=== PATIENT | female | born 1985 | race African-American/Black ===

== ENCOUNTER 2022-07-12 01:09 | Day surgery (SDC) | payer OTHER, MEDICAID, SELFPAY ==
[2022-07-11 15:34] VITALS: BMI 20.7
--- NOTE | 2022-07-11 15:38 | PC.NURSE ---
Report to the Outpatient Waiting Room, entrance under the green pavilion located off [facility], at time 0830 on date 07/12/22. Planned Procedure Time: 1030. Time changes happen often and if your time is changed the preop area will call you the afternoon before. - You and your visitor will be asked to self-screen and do not enter if you have any COVID symptoms. - We encourage only one visitor and NO visitors under age 16 are allowed at this time. Your visitor will receive communication by the phone number that is given day of service. - The patient visitor is requested to social distance or may leave the building when not with patient due to restrictions. - A mask is OPTIONAL within the hospital. Patients may have clear liquids (water, carbonated beverages, clear teas, apple juice) until 3 hours prior to surgery with a maximum of 20 ounces. - No food from midnight until time of surgery - Infants may have breast milk until 4 hours before surgery, formula 6 hours prior to surgery. - Children will be allowed to drink immediately following surgery. If applicable, please bring a bottle or sippy cup to assist with drinking. Juice, water, soda, and popsicles are readily available. For infants on formula, please bring formula the day of surgery. Pacifiers are allowed. Take the following medications with a SIP of water the morning of surgery: NONE Medications to discontinue per physician: VITAMIN Date to take last dose: NO MORE UNTIL AFTER SURGERY Please no make-up, nail bengali, hairspray, perfume, deodorant, or body powder the day of surgery. No jewelry (including any body piercings) or valuables the day of surgery, leave them at home. Please take a shower or bath the night before, or the morning of, surgery with an antibacterial soap. Wear comfortable, loose fitting clothing. - Jewelry must be removed prior to entering the operating room. Rings and piercings that are not removed may be cut off. - The hospital will not accept responsibility for valuables. - Please leave all valuables, including medications, at home the day of surgery. If you are going home after surgery, a licensed route sales delivery driver must drive you home. - NO public transportation without another adult. - We recommend that an adult stay with you for 24 hours following discharge. - We also recommend that you do not drive, make important decision, drink alcoholic beverages, or take any drugs that were not prescribed by your health care provider for at least 24 hours after your discharge time. Follow any additional instructions given to you from your surgeon. If you or anyone in your household have experienced Covid symptoms in the past week, please notify your surgeon or the nurse liaison at the phone number below for possible testing. Telephone instructions given to SABA FORD and asked if any additional questions and then verbalized understanding. Patient advised to call surgeon office or pre surgery nurse liaison [phone] if any additional questions.
--- NOTE | 2022-07-12 09:06 | PM.IMHP ---
H&P: HPI History of Present Illness Date/Time: 07/12/22 09:06 Chief Complaint: early loss Narrative: 36-year-old who presents for suction D&C for management of early loss. Pt was seen for bleeding in early . Beta HCG levels did not rise appropriately. Pelvic US showed a gestational sac with no YS or pole. Pt elected for medical management. Pt took one dose of vaginal misoprostol without any bleeding. Pt then elected for surgical management Review of Systems Cardiovascular: Cardiovascular: Denies chest pain, Denies leg edema, Denies palpitations, Denies dyspnea and Denies dyspnea on exertion Respiratory: Respiratory: Denies cough, Denies dyspnea and Denies dyspnea on exertion Gastrointestinal: Gastrointestinal: Denies abdominal pain, Denies constipation, Denies diarrhea, Denies nausea and Denies vomiting Genitourinary: Genitourinary: Denies hematuria, Denies urinary frequency, Denies dysuria, Denies pelvic pain, Denies urinary incontinence and Denies vaginal discharge Neurologic: Reports system reviewed and no additional complaints, except as documented Psychiatric: Psychiatric: Reports no additional psychiatric complaints Endocrine: Endocrine: Denies palpitations PMFSH Past Medical History Medical History Encounter for screening examination for sexually transmitted disease H/O ovarian cancer (~2006) Insertion of Nexplanon (12/17/13) Nexplanon removal (~10/2016) Suppression of menstruation Family History Family History Grandparent Diabetes mellitus maternal grandmother Hypertension maternal grand mother Social History Social History Smoking status: Current every day smoker Tobacco type: cigars Additional smoking assessment comments: 1-2/DAY Alcohol intake: current Alcohol use details: OCCASIONAL WHEN NOT Substance use: never Substance use type: does not use Living arrangements: with family Additional living arrangements comments: 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 Gender identity (if verbalized by the patient): Female Sexual Orientation (if Verbalized by the Patient): Straight or Heterosexual Spiritual care concerns: No Meds Home Medications and Allergies Home Medications Medication Instructions Recorded Confirmed Type prenat.vits,malka,iga-prfp-acubm 1 tablet PO DAILY 07/11/22 07/11/22 History Allergies Allergy/AdvReac Type Severity Reaction Status Date / Time Penicillins Allergy Severe Hives Verified 07/11/22 15:33 Exam Const: General: no acute distress Eyes: EOM: EOMs intact bilaterally Neck: Neck: supple Thyroid: thyroid normal Chest: Breast/axilla inspection: normal inspection of the breasts Breast/axilla palpation: normal palpation of the breasts, normal palpation of the axillae and no axillary lymphadenopathy Resp: Effort & Inspection: normal respiratory effort Auscultation: clear to auscultation bilaterally Cardio: Rate: regular rate Rhythm: regular rhythm GI: Inspection: non-distended GI Palp: Yes Soft to palpation, No Tenderness to palpation present (GI) and No Guarding due to palpation present (GI) Auscultation: normal bowel sounds : General: No bladder normal to palpation External Female Exam: normal external appearance Speculum Exam - Vagina: normal vaginal discharge and No vaginal bleeding Speculum Exam - Cervix: nontender Bimanual exam- vagina & uterus: No bladder normal to palpation and No Cervical tenderness present OB/external & speculum: No vaginal bleeding Skin: General skin exam: normal color and no rashes or lesions noted Neuro: Cognition (Neuro): normal cognition Speech: normal speech Extrem: General: normal to inspection and no edema Psych: Mental Status: mental statu
[2022-07-12 09:15] VITALS: BP 107/66; PULSE 97; RESP 16; TEMP 36.7; O2SAT 100
--- NOTE | 2022-07-12 09:19 | P.PNAN_ITS ---
Anes - Initial Pre Proc Eval Procedure: Operation Date: 07/12/22 10:30 Proposed Procedures p Suction Dilatation and Curettage - Arsh Ceja MD Date/Time: 07/12/22 09:19 Surgeon: Arsh Ceja MD Pre Op Diagnosis: missed AB Patient Data Age: 36 Gender: F Height: 1.74 m Weight: 62.6 kg Allergies Allergy/AdvReac Type Severity Reaction Status Date / Time Penicillins Allergy Severe Hives Verified 07/11/22 15:33 Home Medications Medication Instructions Recorded Confirmed Type prenat.vits,malka,fgx-[id number]-tqyzw 1 tablet PO DAILY 07/11/22 07/11/22 History Patient hx anesthesia problems: none Family hx anesthesia problems: none Results Review: All pre-operative results and documents have been reviewed as part of the pre- operative evaluation. [facility] Past Medical History Medical History Encounter for screening examination for sexually transmitted disease H/O ovarian cancer (~2006) Insertion of Nexplanon (12/17/13) Nexplanon removal (~10/2016) Suppression of menstruation Family History Family History Grandparent Diabetes mellitus maternal grandmother Hypertension maternal grand mother Social History Social History Smoking status: Current every day smoker Tobacco type: cigars Additional smoking assessment comments: 1-2/DAY Alcohol intake: current Alcohol use details: OCCASIONAL WHEN NOT Substance use: never Substance use type: does not use Living arrangements: with family Additional living arrangements comments: 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 Gender identity (if verbalized by the patient): Female Sexual Orientation (if Verbalized by the Patient): Straight or Heterosexual Spiritual care concerns: No Anes - Eval Final PreProcedure Day of Procedure 07/12/22 09:19 Patient weight: normal Heart: regular rate and rhythm Lungs: clear to auscultation Airway: Mallampati scale class II Neurological: alert and oriented Last oral intake: >/= 8 hours ASA classification: II Emergent: no Anesthetic plan: proceed Anesthesia type and monitoring: general GIVS and standard monitoring Results Review: All pre-operative results and documents have been reviewed as part of the pre- operative evaluation. Informed Consent: The patient's anesthetic plan and its attendant risks and benefits were discussed with the patient/family/POA. Questions were solicited and answers provided to the satisfaction of the patient/family/POA.
[2022-07-12] MEDS: ACETAMINOPHEN 500 MG TABLET 1000 MG PO (09:23)
[2022-07-12] MEDS: LACTATED RINGERS 1,000 ML 30 ML IV CONT (09:42)
[2022-07-12 09:54] LABS: Hemoglobin 13.6 g/dL (12.0-15.0)
--- NOTE | 2022-07-12 10:33 | WPDHPUPDATE1 ---
History and Physical Update Update Date/Time: 07/12/22 10:33 History and Physical has been reviewed, including an updated exam of the patient. There are NO changes in the patient's condition. Risks, benefits, and alternatives have been discussed and questions answered. Patient agrees to proceed with procedure.
[2022-07-12] MEDS: DOXYCYCLINE 100 MG/NS 100 ML 100 MG/100 ML BAG IVPB (10:47)
[2022-07-12] MEDS: LIDOCAINE HCL 1% PF 30 ML VIAL 10 ML INFILTRATE (11:01)
[2022-07-12] MEDS: KETOROLAC 30 MG/ML VIAL (*BKC) IV PUSH (11:07)
[2022-07-12 11:14] VITALS: BP 109/65; PULSE 84; RESP 12; O2SAT 99
--- NOTE | 2022-07-12 11:14 | P.OP_ITS ---
Procedure Note - Detailed Date of Procedure 07/12/22 Pre-op Diagnosis missed Post-op Diagnosis Same Procedure Performed Suction Dilation & curettage Surgeon Arsh Ceja MD Anesthesia General Indications spontaneous missed on pelvic US Findings intrauterine products of conception Description of Procedure The patient was taken to the operating room after a missed had been noted on on transvaginal ultrasound. The risks, benefits and alternatives of the procedure were reviewed with the patient and informed consent was obtained. The patient was taken to the OR and anesthesia was noted to be adequate. The patient was placed in the dorsolithotomy position. Pelvic exam was performed with findings noted above. The patient was prepped and draped in the usual sterile fashion. Sterile speculum was placed in the vagina and the cervix was grasped with a tenaculum. The cervix was dilated further to allow for passage of a 8 mm suction curette. The 8 mm suction curette was gently adv anced to the fundus, suction was activated, and the tip was rotated while being withdrawn to clear the uterus of products. This suction process was repeated 3 additional times due to the quantity of material in the uterus. This process was performed under direct US visualization. The sharp curette was introduced and advanced to the fundus to remove any remaining products. The suction curette was reintroduced one final time to ensure all products had been removed. US was performed and showed a good endometrial stripe. The tenaculum was removed. Good hemostasis was noted. Instrument, sponge, and sharp counts were correct. Patient tolerated the procedure well and was taken to the recovery room in stable condition. Estimated Blood Loss 10 Drains No Packing No Pathology Yes (products of conception) Complications No immediate complications Condition Stable Disposition PACU [facility] Billing Surgery - Charge Forward: Surgery Billing
[2022-07-12 11:45] VITALS: BP 109/75; PULSE 72; RESP 14
[2022-07-12] MEDS: oxyCODONE HCL (*CRX) 5 MG TAB IR PO (12:00)
[2022-07-12 12:15] VITALS: BP 111/74; PULSE 88
[2022-07-12] MEDS: DOXYCYCLINE HYCLATE 100 MG TABLET 200 MG PO (12:40)
== END 2022-07-12 12:45 | disposition home or self-care (01) ==
PROVIDERS: Visit Provider Student in an Organized Health Care Education/Training Program
PROC: (CPT 59820; principal; 2022-07-12 10:30)
DX: O02.1 Missed abortion (principal); F17.290 Nicotine dependence, other tobacco product, uncomplicated; Z3A.00 Weeks of gestation of pregnancy not specified
CPT/HCPCS: 59820; 36415; 85014; 85018; 88305; A9270; J1885; J2250; J2704; J3010; J7120

== ENCOUNTER 2023-06-04 00:06 | Emergency (ER) | payer OTHER, MEDICAID, SELFPAY ==
[2023-06-04 00:09] VITALS: BP 118/76; PULSE 94; RESP 15; TEMP 36.6; O2SAT 100
[2023-06-04 00:38] LABS: Appearance Urine Clear (Clear); Bacteria Urine None Seen /hpf; Bilirubin Urine Negative (Negative); Blood Urine 3+ (Negative); Color Urine Dark Yellow (Yellow); Glucose Urine UA Negative (Negative); Ketones Urine Trace mg/dL (Negative); Leukocyte Esterase Ur Trace LEU/UL (Negative); Nitrate Urine Negative (Negative); Non Pathogenic Casts 0-2; Protein Urine 1+ mg/dL (Negative); RBC Urine 51-100 /hpf (0-2); Squamous Epithelial Cell Urine Few /hpf (Few); WBC Urine 0-5 /hpf
[2023-06-04 00:40] LABS: Add Urine Microscopic? YES
[2023-06-04 02:53] VITALS: BP 103/71; PULSE 80; RESP 20; O2SAT 97
[2023-06-04 03:28] LABS: Basophils Absolute Auto 0.1 K/mm3 (0.0-0.1); Basophils Percent Auto 1.1 % (0.2-1.2); Eosinophils Absolute Auto 1.1 K/mm3 (0-0.3); Eosinophils Percent Auto 10.3 % (0-4.4); Hematocrit 42.8 % (37.0-47.0); Hemoglobin 13.7 g/dL (12.0-15.0); Immature Granulocyte Absolute 0.03 K/mm3 (0.00-0.031); Immature Granulocyte Percent A 0.3 % (0-0.5); Lymphocytes Absolute Auto 3.61 K/mm3 (0.9-3.2); Lymphocytes Percent Auto 34.9 % (18.3-44.2); Mean Corpuscular Hemoglobin 27.8 pg (26-34); Mean Platelet Volume 8.4 fl (7.4-10.4); Monocytes Absolute Auto 0.6 K/mm3 (0.1-0.6); Monocytes Percent Auto 5.3 % (2.6-8.5); Neutrophils Percent Auto 48.1 % (45.5-73.1); Platelet Count Result 320 k/mm3 (150-375); Red Blood Count 4.92 M/mm3 (4.2-5.4); White Blood Count 10.3 K/mm3 (4.5-10.0)
[2023-06-04 04:05] LABS: Beta HCG Quantitative 138.28 mIU/ML
--- NOTE | 2023-06-04 05:15 | ED.GENADULT ---
[facility] - General Adult General Chief complaint: Vaginal Bleeding Stated complaint: vaginal bleeding, 6 weeks Time Seen by Provider: 06/04/23 05:04 History of Present Illness [facility] narrative: Patient presents to the emergency department with vaginal bleeding . Patient had a miscarriage last year so when she went to her physician with this he wanted to keep a close eye on her. She has been having regular beta hCG levels drawn every 2 days. They have not been trending up as anticipated. Today she started having vaginal bleeding. Going through a pad every couple hours. Patient denies lower abdominal pain Related Data Allergies Allergy/AdvReac Type Severity Reaction Status Date / Time Penicillins Allergy Severe Hives Verified 05/20/23 14:51 Review of Systems Review of Systems: Review of systems negative except what is documented in the [facility] Past Medical History Medical History (Updated 06/04/23 @ 05:19 by Livier Michael MD) Encounter for cholecystectomy 04/2022 Encounter for screening examination for sexually transmitted disease H/O ovarian cancer (~2006) Insertion of Nexplanon (12/17/13) Nexplanon removal (~10/2016) Suppression of menstruation Surveillance for Depo-Provera contraception Family History Family History Grandparent Diabetes mellitus maternal grandmother Hypertension maternal grand mother Social History Social History (Updated 05/20/23 @ 14:53 by Rose Owen MA) Smoking status: Current every day smoker Tobacco type: e-cigarettes/vaping Additional smoking assessment comments: 1-2/DAY Alcohol intake: current Alcohol use details: OCCASIONAL WHEN NOT Substance use: current Substance use type: marijuana Other substance usage details: occasional Current Housing: Decline to Answer Concerned About Future Housing: Decline to Answer Difficulty Paying Gas/Electric Bills: Decline to Answer Difficulty Paying for Meds: Decline to Answer Currently Unemployed: Decline to Answer Living arrangements: with family Additional living arrangements comments: Occupation/Education: occupation 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 HEAD: Normocephalic, atraumatic. EYES: PERRLA and EOMI. ENT: Nares clear, no rhinorrhea or epistaxis. Mucous membranes moist. NECK: Supple. CHEST: Clear to auscultation. No respiratory distress. HEART: Regular rate and rhythm. ABDOMEN: Soft, nontender, nondistended. EXTREMITIES: Normal range of motion. No edema. SKIN: Warm, dry, no rash. NEURO: No focal deficits. Alert and oriented x3. PSYCH: Normal mood and affect. Course Course Emergency Course: Beta levels have decreased today. Regardless they have not been increasing as needed for viable . She denies abdominal pain. She is scheduled to see her physician in 2 days where she is scheduled to have an ultrasound. Her beta levels are too low for a formal ultrasound. Regardless, she is not having any pain discussed with patient that she is having an incomplete miscarriage she will need to follow-up with her OB physician Vital Signs Vital signs: Vital Signs Temperature 36.6 C 06/04/23 00:09 Pulse Rate 94 06/04/23 00:09 Respiratory Rate 15 06/04/23 00:09 Blood Pressure 118/76 06/04/23 00:09 Pulse Oximetry 100 06/04/23 00:09 Oxygen Delivery Room Air 06/04/23 00:09 Temperature 36.6 C 06/04/23 00:09 Pulse Rate 80 06/04/23 02:53 Respiratory Rate 20 06/04/23 02:53 Blood Pressure 103/71 06/04/23 02:53 Pulse Oximetry 97 06/04/23 02:53 Oxygen Delivery Room Air 06/04/23 00:0
[2023-06-04 06:22] VITALS: BP 118/74; PULSE 68; RESP 16; O2SAT 99
== END 2023-06-04 06:25 | disposition home or self-care (01) ==
LOC: ANHED 05:32
PROVIDERS: Physician Assistant; Emergency Provider Emergency Medicine
DX: O03.4 Incomplete spontaneous abortion without complication (principal); F17.290 Nicotine dependence, other tobacco product, uncomplicated; Z85.43 Personal history of malignant neoplasm of ovary
CPT/HCPCS: 36415; 81001; 81025; 84702; 85025; 85461; 86850; 86900; 86901; 99284

== ENCOUNTER 2025-02-12 10:57 | Outpatient (RCR) | payer OTHER, SELFPAY ==
[2025-02-12 12:10] VITALS: BP 117/67; PULSE 94
== END 2025-03-06 09:59 | disposition other institution (70) ==
LOC: ANHOBOP 10:57
PROVIDERS: Visit Provider Obstetrics & Gynecology
DX: O36.8130 Decreased fetal movements, third trimester, not applicable or unspecified (principal); Z3A.36 36 weeks gestation of pregnancy
CPT/HCPCS: 59025

== ENCOUNTER 2025-02-20 20:22 | Observation (INO) | payer OTHER, SELFPAY ==
[2025-02-20 20:30] VITALS: BMI 26.4
[2025-02-20 20:40] VITALS: TEMP 37
--- NOTE | 2025-02-20 23:22 | OBADM ---
This patient, Jaci Whittington, admitted to the OB room Labor/Delivery/Recovery 105 for observation. Patient/family oriented to hospital policies and general routines including ID bracelet, bed and alarms, visiting hours, pain management, procedures, bathroom and other care routines, personal items, smoking policy, room service/diet, and visiting hours. Patient/Family are encouraged to report perceived risks to care and to ask questions if they do not understand what they are told or what they should do.
[2025-02-21] VITALS (8 sets, daily range): BP systolic 125; BP diastolic 82; PULSE 83–88; O2SAT 97–98
[2025-02-21] MEDS: MORPHINE SULFATE INJ (*CRX) 10 MG/ML AMP 2 MG IM (01:17)
--- NOTE | 2025-02-22 14:18 | PM.OBTRLD ---
OB - Triage/Final Diagnosis Visit Information Date of evaluation: 02/21/25 Reason for evaluation: threatened labor Comments/Additional reasons for admission: I have assessed the risk for this patient, Jaci Whittington, and determined that she would benefit from observation care.
== END 2025-02-21 01:50 | disposition home or self-care (01) ==
PROVIDERS: Admitting Provider Student in an Organized Health Care Education/Training Program; Visit Provider Student in an Organized Health Care Education/Training Program
DX: O47.1 False labor at or after 37 completed weeks of gestation (principal); Z3A.37 37 weeks gestation of pregnancy
CPT/HCPCS: 96374; G0378; G0379; J2270

== ENCOUNTER 2025-02-26 04:56 | Inpatient (IN) | payer OTHER, SELFPAY ==
[2025-02-26] VITALS (239 sets, daily range): BP systolic 102–161; BP diastolic 46–122; PULSE 62–114; RESP 18–20; TEMP 36.3–37.2; O2SAT 72–100; BMI 26.7
--- NOTE | 2025-02-26 05:14 | LDADM ---
This patient, Jaci Whittington, was admitted to Labor/Delivery/Recovery 104 on 02/26/25 at 04:56. Plans for labor, pain management and were discussed with patient. Patient/family oriented to hospital policies and general routines including ID bracelet, bed and alarms, visiting hours, pain management, procedures, bathroom and other care routines, personal items, smoking policy, room service/diet and guest tray routines, security routines, and visiting hours. Patient/Family are encouraged to report perceived risks to care and to ask questions if they do not understand what they are told or what they should do. See OBIX for further documentation.
[2025-02-26 05:37] LABS: Basophils Percent Auto 0.3 % (0.2-1.2); Eosinophils Absolute Auto 0.2 K/mm3 (0-0.3); Eosinophils Percent Auto 1.7 % (0-4.4); Hematocrit 38.3 % (37.0-47.0); Hemoglobin 12.3 g/dL (12.0-15.0); Immature Granulocyte Absolute 0.11 K/mm3 (0.00-0.031); Immature Granulocyte Percent A 0.9 % (0-0.5); Lymphocytes Absolute Auto 2.87 K/mm3 (0.9-3.2); Lymphocytes Percent Auto 23.9 % (18.3-44.2); Mean Corpuscular HGB Conc 32.1 g/dl (32-36); Mean Corpuscular Hemoglobin 26.9 pg (26-34); Mean Corpuscular Volume 83.6 fl (80-100); Mean Platelet Volume 9.1 fl (7.4-10.4); Monocytes Percent Auto 8.3 % (2.6-8.5); Neutrophils Absolute Auto 7.8 K/mm3 (1.3-6.7); Neutrophils Percent Auto 64.9 % (45.5-73.1); Platelet Count Result 248 k/mm3 (150-375); Red Blood Count 4.58 M/mm3 (4.2-5.4); Red Cell Distribution Width 14.3 % (11.5-14.5)
[2025-02-26] MEDS: OXYTOCIN 30 UNITS/NS 500 ML 30 UNITS/500 ML BAG IV CONT (05:57)
[2025-02-26] MEDS: LACTATED RINGERS 1,000 ML 125 ML IV CONT ×5 (05:57→20:08)
[2025-02-26 06:25] LABS: Syphilis IgG/IgM Antibody Non-Reactive (Nonreactive)
[2025-02-26 06:38] LABS: HIV 1/2 Ab P24 Ag Result Negative (Negative)
[2025-02-26] MEDS: fentaNYL CITRATE INJ (*CRX) 100 MCG/2 ML VIAL 50 MCG IV PUSH ×3 (10:37→17:10)
[2025-02-26] MEDS: fentaNYL CITRATE INJ (*CRX) 100 MCG/2 ML VIAL IV PUSH (18:57)
--- NOTE | 2025-02-26 19:39 | WPDANESEPP ---
Anes - Eval Pre Procedure Procedure: Labor Epidural Date/Time: 02/26/25 19:39 Surgeon: V[place] Preop Diagnosis: Labor Pain Pre Op Diagnosis: IOL Patient Data Age: 39 Gender: F Height: 1.73 m Weight: 81 kg Last Vital Signs Temp 37.2 C 02/26/25 18:00 Pulse 106 H 02/26/25 19:38 Resp 18 02/26/25 18:00 BP 127/98 H 02/26/25 19:38 Pulse Ox 100 02/26/25 19:38 O2 Del Method Room Air 02/26/25 05:14 Allergies Allergy/AdvReac Type Severity Reaction Status Date / Time Penicillins Allergy Severe Hives Verified 02/26/25 05:24 Home Medications ?Medication ?Instructions ?Recorded ?Confirmed ?Type aspirin 81 mg tablet,delayed 81 mg PO DAILY 07/31/24 02/26/25 History release (Adult Low Dose Aspirin) vits no.126-ferrous fum 1 tablet PO DAILY 07/31/24 02/26/25 History 28 mg iron-folic acid 800 mcg tablet (Classic ) ferrous sulfate 325 mg (65 mg 325 mg PO DAILY 12/18/24 02/26/25 History iron) tablet fluconazole 150 mg tablet 150 mg PO Q72H #2 tabs 02/22/25 02/26/25 Rx Laboratory Tests 02/26/25 05:11 WBC 12.0 H K/mm3 (4.5-10.0) RBC 4.58 M/mm3 (4.2-5.4) Hgb 12.3 g/dL (12.0-15.0) Hct 38.3 % (37.0-47.0) MCV 83.6 fl (80-100) MCH 26.9 pg (26-34) MCHC 32.1 g/dl (32-36) RDW 14.3 % (11.5-14.5) Plt Count 248 k/mm3 (150-375) MPV 9.1 fl (7.4-10.4) Immature Gran % (Auto) 0.9 H % (0-0.5) Neut % (Auto) 64.9 % (45.5-73.1) Lymph % (Auto) 23.9 % (18.3-44.2) [place] % (Auto) 8.3 % (2.6-8.5) Eos % (Auto) 1.7 % (0-4.4) Baso % (Auto) 0.3 % (0.2-1.2) Lymph # (Auto) 2.87 K/mm3 (0.9-3.2) [place] # (Auto) 1.0 H K/mm3 (0.1-0.6) Eos # (Auto) 0.2 K/mm3 (0-0.3) Baso # (Auto) 0.0 K/mm3 (0.0-0.1) Abs Immat Gran (auto) 0.11 H K/mm3 (0.00-0.031) Absolute Neuts (auto) 7.8 H K/mm3 (1.3-6.7) Absolute Nucleated RBC 0.000 K/mm3 (0.0-0.012) Nucleated RBC % 0.0 % (0.0-0.2) Syphilis IgG/IgM Ab Non-reactive (Nonreactive) HIV 1&2 Ab/P24 Ag 4thGn Negative (Negative) Blood Type B Positive Antibody Screen Negative Patient hx anesthesia problems: none Family hx anesthesia problems: none Results Review: All pre-operative results and documents have been reviewed as part of the pre-operative evaluation. [facility] Past Medical History Medical History Encounter for cholecystectomy 04/2022 Surveillance for Depo-Provera contraception Encounter for screening examination for sexually transmitted disease Suppression of menstruation Nexplanon removal (~10/2016) Insertion of Nexplanon (12/17/13) H/O ovarian cancer (~2006) Surgical History Surgical History History of hysteroscopy D & C Family History Family History Grandparent Diabetes mellitus maternal grandmother Hypertension maternal grand mother Social History Social History Smoking status: Former smoker Tobacco type: cigarettes Smoking end date: 02/26/25 Additional smoking assessment comments: 1-2/DAY Alcohol intake: former Alcohol use details: OCCASIONAL WHEN NOT Substance use: former Substance use type: marijuana Other substance usage details: occasional Do You Feel Safe in your Home?: Yes Lack of Transportation: No Lack of Food: Never True Current Housing: I Have Housing Concerned About Future Housing: No Difficulty Paying Gas/Electric Bills: No Difficulty Paying for Meds: No Currently Unemployed: No Education: Associate Degree Difficulty w/ Childcare or Family Care: No Living arrangements: with family Additional living arrangements comments: Occupation/Education: occupation 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
--- NOTE | 2025-02-26 21:45 | S_PTH ---
PATIENT: Jaci Whittington LOC: [facility]2 U#:[id number] AGE/SX: 39/F ROOM: 287 RE02/26/[address]: Taye Talamantes MD : 1985 BED: 00 DIS: 02/28/2025 SPEC #: [id number] RECD: 03/01/25 07:38 STATUS: SHIRLEY REQ #: [id number] ALDAIR: 02/26/25 21:[address]: Taye Talamantes DEPT: [facility] Surgical RECD BY: Johnna Reza ENTERED: 03/01/25 07:38 SP TYPE: Surgical OTHR DR: UNKNOWN,DOCTOR Tissues: A - Placenta Procedures: Hematoxylin and Eosin Stain Gross and Microscopic Level 5
--- NOTE | 2025-02-26 21:47 | WPDHPUPDATE1 ---
History and Physical Update Update Date/Time: 02/26/25 21:47 History and Physical has been reviewed, including an updated exam of the patient. There are NO changes in the patient's condition. Risks, benefits, and alternatives have been discussed and questions answered. Patient agrees to proceed with procedure.
--- NOTE | 2025-02-26 21:47 | WPDOBADMIT ---
Obstetrics - Admit Note Admission Note: record reviewed. No pertinent additions to the history and/or any subsequent changes in the physical findings that are not consistent with the expected course of the were found. Additions to the history and/or subsequent changes in the physical findings follow. None.
--- NOTE | 2025-02-26 21:47 | PM.OBPRVD ---
OB - Vaginal Delivery Note Procedure Delivery date: 02/26/25 Events: Other (History of loss) Induction method: AROM and Per Pitocin Protocol Delivery augmentation: Pitocin Delivery monitor: External FHT and Internal Uterine Route of delivery: Episiotomy description: None Laceration Description: None Specimen: Yes Quantitative Blood Loss (ml): 200 Anesthesia type: Epidural Disposition: Floor Complications: No immediate complications Narrative: Patient prepped draped usual manner this procedure. Maternal expulsive efforts readily delivered vertex, nuchal cord was noted and reduced. Rest of baby was delivered difficulty cord clamped cut and placenta delivered spontaneously. Uterus was well contracted with minimal bleeding. Cervix vagina vulva were inspected no lacerations or tears. Immediate condition of mother baby both excellent. [place] Baby Gestational Age by Date: 38 Infant gender: Male presentation: vertex position: Right Occiput Anterior Placenta delivery description: Spontaneous Cord Vessel Description: 3 Vessels, Nuchal Cord and Reduced
[2025-02-26] MEDS: OXYTOCIN 30 UNITS/NS 500 ML 30 UNITS/500 ML BAG 125 UNITS IV CONT (22:03)
[2025-02-26] MEDS: IBUPROFEN 600 MG TABLET PO (23:19)
--- NOTE | 2025-02-27 00:14 | OBPPTRN ---
Patient transferred to post room #287 via w/c. Support person present. Oriented to unit, room, information board, rooming in, admission packet and security measures. Patient verbalizes understanding.
[2025-02-27 00:25] VITALS: BP 123/85; PULSE 75; RESP 18; TEMP 36.6; O2SAT 99
[2025-02-27 04:30] VITALS: BP 140/83; PULSE 75; RESP 18; TEMP 36.6
[2025-02-27] MEDS: ACETAMINOPHEN 325 MG TABLET 650 MG PO ×2 (04:30→22:12)
[2025-02-27 04:49] LABS: Hematocrit 35.7 % (37.0-47.0); Hemoglobin 11.4 g/dL (12.0-15.0)
[2025-02-27] MEDS: IBUPROFEN 600 MG TABLET PO ×2 (07:45→16:17)
[2025-02-27] MEDS: MULTIVIT/MIN/PREN/FOL AC/IRON TABLET 1 TAB PO (07:45)
[2025-02-27 08:31] VITALS: BP 110/72; PULSE 80; RESP 18; TEMP 37.1; O2SAT 100
--- NOTE | 2025-02-27 08:45 | PC.NURSE ---
Introductions were made, then consulted with patient to assess needs related to . Discussed with mother her?experience so far. She states that she may call out at the next feeding time. Primary RN provided a heating pad for cramping because mother states that she is 'cramping too bad' to breastfeed right now. Patient is aware that it is time for baby to eat. Resources provided for inpatient and outpatient services with the feeding sheet, mom/baby guide and name written on the communication board. Mother voiced understanding of information and will call if there is a request for assistance. Reported to the Primary RN.
--- NOTE | 2025-02-27 10:30 | PM.OBDSVD ---
DS: Admitting Diagnosis Discharge Date 02/28/2025 Admitting Diagnosis DS: Discharge Diagnosis Discharge Diagnosis (1) , delivered: Code(s): O80 - Encounter for full-term uncomplicated delivery Status: Acute OB - DS: Summary OB Procedures : None OB Procedures Intrapartum: Spontaneous Vag Delivery OB Procedures: : None Peripartum Data Laceration Description: None Episiotomy description: None Time Spent with Patient Time attestation: Total time spent providing and/or coordinating discharge services: DS: Data Data Completed and Pending Labs on day of discharge: Labs from last 24 hours 02/27/25 04:03 Hgb 11.4 L Hct 35.7 L Discharge Plan Discharge Discharging Clinician: Taye Talamantes Patient Disposition: Home Activity: pelvic rest Diet: as tolerated Patient Instructions: Antibiotic Form Patient Language: Syriac Stand Alone Forms: General Discharge Information Follow-up/Referrals: Taye Talamantes MD [Physician] - 4 Weeks Discharge Medications: New oxycodone-acetaminophen 5-325 mg Tablet 1 tablet PO Q4H PRN (Reason: Pain Rated 7-10) Qty: 20 0RF ibuprofen 600 mg Tablet 600 mg PO Q6H PRN (Reason: Cramping) Qty: 30 0RF Continued Classic 28 mg iron- 800 mcg tablet 1 tablet PO DAILY ferrous sulfate 325 mg (65 mg iron) tablet 325 mg PO DAILY fluconazole 150 mg tablet 150 mg PO Q72H Qty: 2 0RF Rx Instructions: as a single dose Discontinued aspirin [Adult Low Dose Aspirin] 81 mg tablet,delayed release (DR/EC) 81 mg PO DAILY Date of admission: 02/26/25 04:56 Primary Care Provider: UNKNOWN,DOCTOR Admitting Provider: Taye Talamantes Attending physician on admission: Taye Talamantes Condition: Stable
[2025-02-27] MEDS: oxyCODONE/ACETAMINOPHEN (*CRX) 5-325 MG TABLET 1 TABLET PO ×3 (10:56→22:12)
[2025-02-27 12:12] VITALS: BP 113/74; PULSE 96; RESP 16; TEMP 36.8; O2SAT 98
--- NOTE | 2025-02-27 12:55 | PC.NURSE ---
Patient attempting to feed baby and states that he doesn't open his mouth wide enough. Mom placed baby in a cradle hold with appropriate alignment and baby was able to latch with minimal effort. Mom was able to achieve the latch independently. Baby's bottom lip is observed to be flanged out and he has a wide open mouth. He suckles off and on. Mom states she has some tenderness and pinching sometimes but that it feels 'okay'. The latch appears optimal from the outside. Baby does have quivering of his lower jaw. Patient is encouraged to keep baby awake with gentle stimulation and to call for further assistance if needed. RN updated.
--- NOTE | 2025-02-27 16:57 | WPDANLDPN2 ---
Anes-Prog Note L&D Date/Time: 02/27/25 16:57 Comfortable throughout: section Neuraxial method: spinal Epidural/Spinal procedure site: clean & non-tender Neuro status: Neuro function grossly intact. Vital Signs: Last Vital Signs Temp 98.3 F 02/27/25 12:12 Pulse 96 02/27/25 12:12 Resp 16 02/27/25 12:12 BP 113/74 02/27/25 12:12 Pulse Ox 98 02/27/25 12:12 O2 Del Method Room Air 02/27/25 07:59 Pain score (VAS): 0 Patient feedback: Patient satisfied with anesthetic care.
[2025-02-27 20:28] VITALS: BP 121/73; PULSE 79; RESP 16; TEMP 36.8; O2SAT 99
[2025-02-28] MEDS: IBUPROFEN 600 MG TABLET PO ×3 (03:22→16:06)
[2025-02-28] MEDS: oxyCODONE/ACETAMINOPHEN (*CRX) 5-325 MG TABLET 1 TABLET PO ×4 (03:22→16:05)
[2025-02-28] MEDS: MULTIVIT/MIN/PREN/FOL AC/IRON TABLET 1 TAB PO (07:13)
[2025-02-28 07:27] VITALS: BP 125/75; PULSE 80; RESP 16; TEMP 36.2; O2SAT 98
[2025-03-01 10:35] VITALS: BP 123/76; PULSE 80; RESP 18; TEMP 37.3; O2SAT 100
== END 2025-02-28 16:25 | disposition home or self-care (01) | DRG 807 ==
LOC: ANHLDR 04:59 → ANHOB2 02-27 00:39
PROVIDERS: Admitting Provider Obstetrics & Gynecology; Visit Provider Obstetrics & Gynecology
DX: O99.892 Other specified diseases and conditions complicating childbirth (principal); Z37.0 Single live birth; Z3A.38 38 weeks gestation of pregnancy; O62.3 Precipitate labor; Z87.59 Personal history of other complications of pregnancy, childbirth and the puerperium; O69.81X0 Labor and delivery complicated by cord around neck, without compression, not applicable or unspecified
CPT/HCPCS: 36415; 85014; 85018; 85025; 86593; 86703; 86850; 86900; 86901; 88307; A9270; G0432; J2590; J2795; J3010; J7120

== ENCOUNTER 2025-08-22 18:19 | Emergency (ER) | payer OTHER, SELFPAY ==
[2025-08-22 18:21] VITALS: BP 139/83; PULSE 88; RESP 18; TEMP 36.4; O2SAT 98
[2025-08-22 19:30] VITALS: BP 140/96; PULSE 90; RESP 18; TEMP 36.8; O2SAT 97
--- NOTE | 2025-08-22 19:35 | ED.SKABFB ---
HPI - Skin/Abscess/Foreign Bdy General Chief complaint: Skin/Abscess/Foreign Body Stated complaint: bumps all over Time Seen by Provider: 08/22/25 19:22 Source: patient Mode of arrival: ambulatory Limitations: no limitations History of Present Illness HPI narrative: This is a 39 year old female that presents to the ER for a painful rash. Ongoing over the last couple of days. Reports bumps on the left thigh, labia and buttock. Denies dysuria. Related Data Home Medications ?Medication ?Instructions ?Recorded ?Confirmed ?Last Taken ?Type vits no.126-ferrous fum 1 tablet PO DAILY 07/31/24 03/26/25 02/25/25 History 28 mg iron-folic acid 800 mcg tablet (Classic ) ferrous sulfate 325 mg (65 mg 325 mg PO DAILY 12/18/24 03/26/25 02/25/25 History iron) tablet Allergies Allergy/AdvReac Type Severity Reaction Status Date / Time Penicillins Allergy Severe Hives Verified 08/22/25 18:25 Review of Systems Review of Systems: All systems reviewed & are unremarkable except as noted in HPI and below PMFSH Past Medical History Medical History Encounter for cholecystectomy 04/2022 Surveillance for Depo-Provera contraception Encounter for screening examination for sexually transmitted disease Suppression of menstruation Nexplanon removal (~10/2016) Insertion of Nexplanon (12/17/13) H/O ovarian cancer (~2006) Surgical History Surgical History History of hysteroscopy D & C Family History Family History Grandparent Diabetes mellitus maternal grandmother Hypertension maternal grand mother Social History Social History Smoking status: Former smoker Tobacco type: cigarettes Smoking end date: 02/26/25 Additional smoking assessment comments: 1-2/DAY Alcohol intake: former Alcohol use details: OCCASIONAL WHEN NOT Substance use: former Substance use type: marijuana Other substance usage details: occasional Lack of Transportation: No Lack of Food: Never True Current Housing: I Have Housing Concerned About Future Housing: No Difficulty Paying Gas/Electric Bills: No Difficulty Paying for Meds: No Currently Unemployed: No Education: Associate Degree Difficulty w/ Childcare or Family Care: No Living arrangements: with family Additional living arrangements comments: Occupation/Education: 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 HEAD: Normocephalic, atraumatic. EYES: EOMI. EXTREMITIES: Normal range of motion. No edema. SKIN: Warm, dry. Papulovesicular rash to the left buttock, labia and inner thigh NEURO: No focal deficits. Alert and oriented x3. PSYCH: Normal mood and affect Course Vital Signs Vital signs: Vital Signs Temperature 97.6 F 08/22/25 18:21 Pulse Rate 88 08/22/25 18:21 Respiratory Rate 18 08/22/25 18:21 Blood Pressure 139/83 08/22/25 18:21 Pulse Oximetry 98 08/22/25 18:21 Oxygen Delivery Room Air 08/22/25 18:21 Temperature 98.2 F 08/22/25 19:30 Pulse Rate 90 08/22/25 19:30 Respiratory Rate 18 08/22/25 19:30 Blood Pressure 140/96 H 08/22/25 19:30 Pulse Oximetry 97 08/22/25 19:30 Oxygen Delivery Room Air 08/22/25 19:25 MDM MDM Narrative Medical decision making narrative: Patient presents the emergency department for a rash suspicious of shingles. Will be started on antiviral. Follow up with PCP Differential Diagnosis Differential Diagnosis: HSV, shingles Critical Care Time Critical Care Time Critical Care Time: No Discharge Plan Discharge Clinical Impression: Shingles Qualifiers: Herpes zoster complications: without complications Qualified Code(s): B02.9 - Zoster without complications Patient Disposition: Home Condition: Stable Instructions: Shingles (ED) Additional Instructions: Return to the emergency department if you experience fever, redness and swelling of your wounds, abnormal drainage from your wounds, or any other symptoms that are concerning to you Take Valacyclovir as prescribed. Tylenol or Ibuprofen as needed for pain Follow-up with your primary care doctor Patient Language: Danish Prescriptions: New valacyclovir 1 gram tablet 1,000 mg PO Q8H 7 Days Qty: 21 0RF hydrocodone-acetaminophen 5-325 mg tablet 1 tablet PO Q8H PRN (Reason: pain) Qty: 10 0RF No Action Classic 28 mg iron- 800 mcg tablet 1 tablet PO DAILY norethindrone (contraceptive) [Josie] 0.35 mg tablet 0.35 mg PO DAILY Qty: 84 3RF ferrous sulfate 325 mg (65 mg iron) tablet 325 mg PO DAILY metronidazole 500 mg tablet 500 mg PO Q12H Qty: 14 0RF Follow-up/Referrals: PHYSICIAN NOT ON STAFF,NONSTAFF [Non-Staff]
--- OUTSIDE RECORDS SUMMARY | 2025-08-22 19:41 | XMS_ITS | Clinical Summary ---
Author Organization [facility] Address [facility] [place] [address] Care Team Providers Care [employer] Coxswain Name Role Phone LeonardezequielPierreey [facility] Primary Care Provider [phone] Allergies Active Allergy Reactions Criticality Noted Date Comments Penicillins Rash Low 04/10/2023 Medications progesterone (PROMETRIUM) 200 MG capsule Take 1 capsule (200 mg total) by mouth nightly at bedtime. 3 Active Boric Acid Vaginal [address] 600 mg vaginally nightly as needed. Active HYDROcodone-kayla taminophen (NORCO) 5-325 MG tabletIndicatio ns:Acute Pain < 7 Day Supply Take 1 tablet by mouth every 6 (six) hours as needed. Indications: Acute Pain < 7 Day Supply 10 tablet 3 Active Active Problems Problem Noted Date Diagnosed Date Acute pancreatitis 04/10/2023 Cholecystitis 04/10/2023 Social History Tobacco Use Types Packs/Day Years Used Date Smoking Tobacco: Every Day Cigarettes Smokeless Tobacco: Never Alcohol Use Standard Drinks/Week Comments Not Currently 0 (1 standard drink = 0.6 oz pur e alcohol) Socially Overall Financial Resource Strain (CARDIA) Answe r Date Recorded How hard is it for you to pa y for the very basics like food, housing, medical care, and heating? Somewhat hard 04/11/2023 Hunger Vital Sign Answer Date Recorded Within the past 12 months, y ou worried that your food would run out before you got the money to buy more. Sometimes true Within the past 12 months, t he food you bought just didn't last and you didn't have money to get more. Sometimes true 06/2023 PRAPARE - Transportation Answer Date Re corded In the past 12 months, has l ack of transportation kept you from medical appointments or from getting medications? No 04/02 In the past 12 months, has l ack of transportation kept you from meetings, work, or from getting things needed for daily living? No 04/11/2023 Housing Stability Vital Sign Answer Brooks e Recorded In the last 12 months, was t here a time when you were not able to pay the mortgage or rent on time? Yes 04/11/2023 In the last 12 months, how many places have you lived? 1 04/11/2023 In the last 12 months, was t here a time when you did not have a steady place to sleep or slept in a long term (including now)? No 04/11/2023 Comments No Sex and Gender Information Value Date Recorded Sex Assigned at Not on file Legal Sex Female 7:52 PM CDT Gender Identity Not on file Sexual Orientation Not on file Last Filed Vital Signs Vital Sign Reading Time Taken Comments Blood Pressure 135/92 04/12/2023 1:30 PM CDT Pulse 69 04/12/2023 1:30 PM CDT Temperature 36.2 C (97.2 F) 04/12/2023 9:57 AM CDT Respiratory Rate 14 04/12/2023 1:30 PM CDT Oxygen Saturation 98% 04/12/2023 1:30 PM CDT Inhaled Oxygen Concentration - - Weight 61.9 kg (136 lb 7.4 oz) 04/12/2023 4:10 A M CDT Height 174 cm (5' 8.5) 04/10/2023 7:07 PM CDT Body Mass Index 20.45 04/10/2023 7:07 PM CDT Plan of Treatment Health Maintenance Due Date Last Done Comments Cervical Cancer Screening Pa p Smear (Age 30 to 64) Every 3 Years 1985 Annual Physical 1988 Hepatitis C 2003 Hepatitis B Vaccines (1 of 3 - 19+ 3-dose series) 2004 Pneumococcal Vaccine: Pediat rics (0 to 5 Years) and At-Risk Patients (6 to 49 Years) (1 of 2 - PCV) 2004 HPV Vaccines (1 - 3-dose SCD M series) 2012 Cervical Cancer Screening Pa p with HPV Testing (Age 30 to 64) Every 5 Years 2015 Cervical Cancer Screening with HPV 2015 COVID-19 Vaccine (2024-2 6 season) 2025 Influenza Adult (#1) 2025 DTaP, Tdap and Td Vaccines ( 2 - Td or Tdap) 09/22/2027 09/22/2017 Hepatitis A Vaccines Aged Out No long er eligible based on patient's age to complete this topic Meningococcal B Vaccine Aged Out No l onger eligible based on patient's age to complete this topic Meningococcal Vaccine Aged Out No migel terrell eligible based on patient's age to complete this topic RSV Immunizations Under 20 Months Aged Out No longer eligible based on patient's age to complete this topic Goals Goal Patient Goal Type Associated Problems Recent Progress Patient-Stated? Author Health - patient able to perform ADLs independently Lifestyle No Koerkenme i er, Rao Lopez RN [facility] Advance Directives * Full Code (Latest Code Status on File) Date Activated Date Inactivated Comments 04/12/2023 11:11 AM 04/12/2023 5:13 PM * Full Code Date Activated Date Inactivated Comments 04/10/2023 10:36 PM 04/12/2023 11:11 AM * Full Code Date Activated Date Inactivated Comments 04/10/2023 4:03 PM 04/10/2023 7:03 PM Care Teams [employer] Cox[employer]ain Relationship Specialty Start Date End Date Ginger Christine FNP- [address] [place] [id number] PCP - General Nurse Practitioner Family 04/10/23
--- OUTSIDE RECORDS SUMMARY | 2025-08-22 19:41 | XMS_ITS | Clinical Summary ---
Author Organization [facility] Address [address] [place] [address] Care Team Providers Care Lead Software Developer Name Role Phone Unknown, Provider Primary Care Provider Unavaila ble Source Comments [facility],non-owned Affiliates and Associated Physician Practices is amultiple site organization consisting of ambulatory clinics and hospital sitesin [place], [place], [place] and [place]. This disclosure is being madepursuant to the Care Everywhere program and may not contain all information available regarding this patient. Last updated 18.[facility] Allergies Active Allergy Reactions Criticality Noted Date Comments Penicillins Rash Medium 01/19/2024 Penicillins 06/15/2013 Medications * Be aware that medications may not be up to date on this document. Alwaysverify current medications with the patient. Vit-Fe Fumarate-FA ( vitamin) 28-0.8 MG tablet Take 1 (one) tablet by mouth once daily Active aspirin (Aspirin) 81 MG chew tablet Take 1 (one) tablet by mouth once daily Active vitamin D3 (Cholecalcifero l) 25 MCG (1000 UNITS) tablet Take 1 (one) tablet by mouth once daily Active [place]-3 Fatty Acids (fish oil) 500 MG capsule Take 500 (five hundred) mg by mouth once daily Active pyridoxine (Vitamin B-6) 25 MG tablet Take 2 (two) tablets by mouth once daily Active Doxylamine Succinate, Sleep, (UNISOM PO) Take 1 tablet by mouth once daily Active Active Problems Problem Noted Date Diagnosed Date Supervision of high-risk of elderly mu ltigravida 09/30/2024 Encounter for anatomic survey 09/30/2024 Resolved Problems Problem Noted Date Diagnosed Date Resolved Date Abnormal quad screen 06/08/2013 025 Encounter for supervision of other normal 06/08/2013 09/30/2024 Overview (07/10/2015): Social History Tobacco Use Types Packs/Day Years Used Date Smoking Tobacco: Former Cigarettes Smokeless Tobacco: Never Alcohol Use Standard Drinks/Week Comments Not Currently 0 (1 standard drink = 0.6 oz pur e alcohol) Comments No Sex and Gender Information Value Date Recorded Sex Assigned at Not on file Legal Sex Female 7:03 AM CDT Gender Identity Not on file Sexual Orientation Not on file Last Filed Vital Signs Vital Sign Reading Time Taken Comments Blood Pressure 113/70 02/19/2025 11:09 AM CDT Pulse 88 02/19/2025 11:09 AM CDT Temperature 37.3 C (99.2 F) 01/19/2024 5:57 PM CDT Respiratory Rate 18 01/19/2024 5:57 PM CDT Oxygen Saturation 97% 01/19/2024 5:57 PM CDT Inhaled Oxygen Concentration - - Weight 71.9 kg (158 lb 9.6 oz) 12/16/2024 8:00 A M CDT Height 172.7 cm (5' 8) 12/16/2024 8:00 AM CDT Body Mass Index 24.12 12/16/2024 8:00 AM CDT Plan of Treatment Health Maintenance Due Date Last Done Comments HIV SCREENING 2000 HEPATITIS C SCREENING 10/17/2003 DTAP/TDAP/TD VACCINES (1 - Tdap) 2004 HEPATITIS B VACCINE (1 of - + 3-dose series) 2004 PAP SMEAR 2006 HPV VACCINE (1 - 3-dose SCDM series) 2012 DEPRESSION SCREENING 09/02/2024 COVID-19 VACCINE (1 - 2024-2 6 season) 2025 INFLUENZA VACCINE (#1) 2025 ZOSTER VACCINE (1 of 2) 2035 HIB VACCINE Aged Out No longer eligi ble based on patient's age to complete this topic MENINGOCOCCAL (Group B) VACC INE SHARED DECISION-MAKING Aged Out No longer eligibl e based on patient's age to complete this topic MENINGOCOCCAL GROUPS A/C/Y/W VACCINE Aged Out No longer eligible b ased on patient's age to complete this topic PNEUMOCOCCAL VACCINE Aged Out No long er eligible based on patient's age to complete this topic Insurance AETNA MEDICAID - OUT OF STATE AETNA SELF PAY NO INSURANCE Member Subscriber Plan / Payer (Ef fective for All Dates) Name:Jaci Whittington Member ID:Not on file Relation to Subscriber:Not on file Name:JACI FORD Subscriber ID:Not on file (Home) Address: [address] [place] [id number] Payer ID:Not on file Group ID:Not on file Type:Self Pay Address: [place], [place] Care Teams Lead Software Developer Relationship Specialty Start Date End Date Unknown, Provider PCP - General 01/19/24
--- OUTSIDE RECORDS SUMMARY | 2025-08-22 19:41 | XMS_ITS | Clinical Summary ---
Author Organization [facility] Address [address] [place] [address] Care Team Providers Care Behavioral Therapy Coordinator Name Role Phone Ginger Christine NP Primary Care Provider [phone] Allergies Active Allergy Reactions Criticality Noted Date Comments Penicillins Rash Medium 11/20/2021 Medications traMADoL (ULTRAM) 50 mg tablet Take 1 tablet (50 mg total) by mouth every 8 (eight) hours as needed for pain 12 tablet 11/20/2021 Active cyclobenzaprine (FLEXERIL) 10 mg tablet Take 1 tablet (10 mg total) by mouth 2 (two) times a day as needed for muscle spasms 20 tablet 10/29/2022 Active ibuprofen (ADVIL,MOTRIN) 600 mg tablet Take 1 tablet (600 mg total) by mouth every 6 (six) hours as needed for pain 30 tablet 10/29/2022 Active metroNIDAZOLE (FLAGYL) 500 mg tablet Take 1 tablet (500 mg total) by mouth 2 (two) times a day 12/19/2022 Active buPROPion SR (ZYBAN) 150 mg 12 hr tabletIndication s:Encounter for smoking cessation counseling Take 1 tablet (150 mg total) by mouth 2 (two) times a day 60 tablet 5 12/25/2022 Active Active Problems Problem Noted Date Diagnosed Date BMI 20.0-20.9, adult 12/25/2022 Right upper quadrant pain 12/25/2022 Lumbar back pain 12/25/2022 Encounter for smoking cessation counseling 11/27 Calculus of gallbladder with out cholecystitis without obstruction 11/27/2021 Abdominal pain 11/27/2021 Resolved Problems Problem Noted Date Diagnosed Date Resolved Date BMI 21.0-21.9, adult 11/27/2021 023 Immunizations Immunization Administration Dates Next Due Influenza, Unspecified 12/25/2022(Deferr ed: Patient Refused),11/27/2021(Deferred: Patient Refused),10/04/2021(Deferred: Patient Refused) Surgical History Surgery Date Site/Laterality Comments LAPAROTOMY 09/02/2000 - 09/01/2001 Medical History Medical History Date Comments Heart murmur Gallbladder attack Family History Medical History Relation Name Comments No Known Problems Father Diabetes Maternal Grandmother Hyperlipidemia Maternal Grandmother Hypertension Maternal Grandmother No Known Problems Mother Diabetes Paternal Grandmother Hyperlipidemia Paternal Grandmother Hypertension Paternal Grandmother Relation Name Status Comments Father Alive Maternal Grandmother Mother Alive Paternal Grandmother Social History Tobacco Use Types Packs/Day Years Used Date Smoking Tobacco: Every Day Cigars Smokeless Tobacco: Never Comments:Smoke about 0.5 pac k a day for about 20 years Alcohol Use Standard Drinks/Week Comments Yes 0 (1 standard drink = 0.6 oz pur e alcohol) social AUDIT-C Answer Date Recorded Q1: How often do you have a drink containing alc ohol? 2-4 times a month 11/27/2021 Q2: How many drinks containi ng alcohol do you have on a typical day when you are drinking? 1 or 2 11/27/2021 Q3: How often do you have si x or more drinks on one occasion? 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 Gender Identity Not on file Sexual Orientation Not on file Last Filed Vital Signs Vital Sign Reading Time Taken Comments Blood Pressure 118/70 12/25/2022 1:56 PM CDT Pulse 81 12/25/2022 1:56 PM CDT Temperature 37.3 C (99.1 F) 12/25/2022 1:56 PM CDT Respiratory Rate 18 10/29/2022 1:21 PM BOILER WELDER Oxygen Saturation 97% 12/25/2022 1:56 PM CDT Inhaled Oxygen Concentration - - Weight 58.1 kg (128 lb) 12/25/2022 1:56 PM CDT Height 172.7 cm (5' 8) 12/25/2022 1:56 PM CDT Body Mass Index 19.46 12/25/2022 1:56 PM CDT Plan of Treatment Health Maintenance Due Date Last Done Comments Cervical Cancer Screening 1985 Hepatitis C Screening 1985 DTaP/Tdap/Td Vaccine (1 - Tdap) 1996 Varicella Vaccines (1 of 2 - 13+ 2-dose series) 1998 Hepatitis B Screening 2003 Pneumococcal vaccine <65 (1 of 2 - PCV) 2004 HPV Vaccines (1 - 3-dose SCDM series) 2012 Depression Screening 12/26/2023 12/25/2022, 11/28/19 22 Regular Well Visit/Exam 18-64 12/26/2023 12/25/2022 Influenza Vaccine (#1) 2025 Insurance IDPA AETNA SIG [id number] IDPA [facility] AETNA [facility] [address] [place] [address] AETNA SIG [id number] IDPA Care Teams Behavioral Therapy Coordinator Relationship Specialty Start Date End Date Ginger Christine NP [address] [place] [address] PCP - General Internal Medicine 12/10/22
[2025-08-22] MEDS: KETOROLAC 30 MG/ML VIAL (*BKC) IM (20:28)
== END 2025-08-22 21:08 | disposition home or self-care (01) ==
PROVIDERS: Emergency Provider Physician Assistant
DX: B02.9 Zoster without complications (principal); Z85.43 Personal history of malignant neoplasm of ovary; Z87.891 Personal history of nicotine dependence
CPT/HCPCS: 96372; 99283; A9270; J1885